=== PATIENT | female | born 1965 | race Caucasian/White ===

== ENCOUNTER 2019-08-17 11:00 | Emergency (ER) | payer BC, OTHER ==
[~2019-08-17] VITALS: Ht 147.3 cm; Wt 59.5 kg
[2019-08-17] MEDS ORDERED: TOPI100T37 PO ×2 (11:13→12:12)
[2019-08-17] MEDS ORDERED: CARB-60 PO (11:13)
[2019-08-17] MEDS ORDERED: LevETIRAcetam 1,000 MG in DEXTROSE 5%-WATER 100 ML IV ONE (12:00)
[2019-08-17] MEDS ORDERED: LORazepam 2 MG/ML VIAL IVP ONE (12:00)
[2019-08-17] MEDS ORDERED: CarBAMazepine 200 MG ER TABLET PO ONE (12:00)
[2019-08-17 13:02] LABS: BASOPHILS % (AUTO) 0.4 % (0.0-2.0); EOSINOPHILS % (AUTO) 0.2 % (1.0-6.0); HEMATOCRIT 40.7 % (36-46); HEMOGLOBIN 13.5 g/dL (12.0-16.0); LYMPHOCYTES # (AUTO) 1.1 K/uL (1.0-4.8); LYMPHOCYTES % (AUTO) 18.5 % (22.0-44.0); MEAN CORPUSCULAR HEMOGLOBIN 31.5 pg (26.0-34.0); MEAN CORPUSCULAR VOLUME 95 fL (80-100); MONOCYTES # (AUTO) 0.3 K/uL (0.1-1.0); MONOCYTES % (AUTO) 5.4 % (2.0-9.0); NEUTROPHILS # (AUTO) 4.4 K/uL (1.8-7.7); NEUTROPHILS % (AUTO) 75.5 % (40.0-70.0); PLATELET COUNT (AUTO) 206 K/uL (150-450); RED BLOOD CELL COUNT(AUTO) 4.27 MIL/uL (4.00-5.20); RED CELL DISTRIBUTION WIDTH 12.8 % (11.5-14.5)
[2019-08-17 13:16] LABS: ANION GAP 9 mmol/L (8-16); CALCIUM, TOTAL 8.1 mg/dL (8.8-10.5); CARBON DIOXIDE 25 mmol/L (22-29); CHLORIDE 108 mmol/L (98-107); CREATININE 0.85 mg/dL (0.60-1.30); GLOMERULAR FILTR. RATE CALC > 60 mL/min (>60); GLUCOSE,RANDOM 107 mg/dL (70-110); POTASSIUM 3.6 mmol/L (3.5-5.1); SODIUM SERUM 142 mmol/L (136-145); UREA NITROGEN, BLOOD 12 mg/dL (7-18)
[2019-08-17 13:23] LABS: ALANINE AMINOTRANSFERASE 22 U/L (12-78); ALBUMIN 3.7 g/dL (3.4-5.0); ALKALINE PHOSPHATASE 178 U/L (46-116); ASPARTATE AMINOTRANSFERASE 15 U/L (15-37); BILIRUBIN,TOTAL 0.2 mg/dL (0.1-1.0); TOTAL PROTEIN, SERUM 7.6 g/dL (6.4-8.2)
[2019-08-17 17:28] VITALS: BP 129/77
== END 2019-08-17 17:31 | disposition home or self-care (01) ==
LOC: EMS 11:03
DX: G40.909 Epilepsy, unspecified, not intractable, without status epilepticus (principal)
CPT/HCPCS: 36415; 80053; 85025; 96374; 96375; 99283; J0712; J2060; J7060

== ENCOUNTER 2019-08-23 10:50 | Emergency (ER) | payer BC, OTHER ==
[~2019-08-23] VITALS: Ht 147.3 cm; Wt 61.3 kg
[~2019-08-23 10:50] MED LIST: CARB-60 PO; TOPI100T37 PO
[2019-08-23 12:23] VITALS: BP 122/81
== END 2019-08-23 13:10 | disposition home or self-care (01) ==
LOC: EMS 10:52
DX: S80.811A Abrasion, right lower leg, initial encounter (principal); G40.909 Epilepsy, unspecified, not intractable, without status epilepticus; Z98.890 Other specified postprocedural states; Z79.899 Other long term (current) drug therapy; X58.XXXA Exposure to other specified factors, initial encounter; Y93.01 Activity, walking, marching and hiking; Y92.410 Unspecified street and highway as the place of occurrence of the external cause; Y99.8 Other external cause status

== ENCOUNTER 2020-03-22 14:13 | Emergency (ER) | payer BC, OTHER ==
[~2020-03-22] VITALS: Ht 149.9 cm; Wt 54.5 kg
[2020-03-22 15:27] LABS: BASOPHILS % (AUTO) 0.5 % (0.0-2.0); EOSINOPHILS % (AUTO) 0.7 % (1.0-6.0); HEMATOCRIT 41.2 % (36-46); HEMOGLOBIN 13.6 g/dL (12.0-16.0); LYMPHOCYTES # (AUTO) 1.4 K/uL (1.0-4.8); LYMPHOCYTES % (AUTO) 25.9 % (22.0-44.0); MEAN CORPUSCULAR HEMOGLOBIN 30.7 pg (26.0-34.0); MEAN CORPUSCULAR HGB CONC 32.9 G/dL (31.0-37.0); MEAN CORPUSCULAR VOLUME 93 fL (80-100); MONOCYTES # (AUTO) 0.4 K/uL (0.1-1.0); MONOCYTES % (AUTO) 7.2 % (2.0-9.0); NEUTROPHILS # (AUTO) 3.6 K/uL (1.8-7.7); NEUTROPHILS % (AUTO) 65.7 % (40.0-70.0); PLATELET COUNT (AUTO) 210 K/uL (150-450); RED BLOOD CELL COUNT(AUTO) 4.42 MIL/uL (4.00-5.20); RED CELL DISTRIBUTION WIDTH 13.5 % (11.5-14.5)
[2020-03-22 15:39] LABS: ANION GAP 13 mmol/L (8-16); CALCIUM, TOTAL 8.9 mg/dL (8.8-10.5); CARBON DIOXIDE 23 mmol/L (22-29); CHLORIDE 107 mmol/L (98-107); CREATININE 0.77 mg/dL (0.60-1.30); GLOMERULAR FILTR. RATE CALC > 60 mL/min (>60); GLUCOSE,RANDOM 122 mg/dL (70-110); POTASSIUM 3.6 mmol/L (3.5-5.1); SODIUM SERUM 143 mmol/L (136-145); UREA NITROGEN, BLOOD 18 mg/dL (7-18)
[2020-03-22 15:52] LABS: ALANINE AMINOTRANSFERASE 25 U/L (12-78); ALBUMIN 3.9 g/dL (3.4-5.0); ALKALINE PHOSPHATASE 160 U/L (46-116); ASPARTATE AMINOTRANSFERASE 22 U/L (15-37); BILIRUBIN,TOTAL 0.4 mg/dL (0.1-1.0); TOTAL PROTEIN, SERUM 8.2 g/dL (6.4-8.2)
[2020-03-22] MEDS ORDERED: OXCA300T57 PO (16:04)
[2020-03-22 16:08] LABS: PHENYTOIN (DILANTIN) < 0.5 mcg/mL (10.0-20.0)
[2020-03-22] MEDS ORDERED: LORazepam 1 MG TABLET PO ONE (17:45)
[2020-03-22] MEDS ORDERED: SODIUM CHLORIDE 0.9% 1,000 ML IV ONE (17:45)
[2020-03-22 18:38] LABS: AMPHET/METH SCREEN,URINE NEGATIVE (NEGATIVE); BARBITURATE SCREEN, URINE NEGATIVE (NEGATIVE); BENZODIAZEPINES SCREEN,URINE NEGATIVE (NEGATIVE); CANNABINOID SCREEN,URINE NEGATIVE (NEGATIVE); COCAINE SCREEN,URINE NEGATIVE (NEGATIVE); METHADONE SCREEN, URINE NEGATIVE (NEGATIVE); OPIATE SCREEN,URINE NEGATIVE (NEGATIVE)
[2020-03-22 18:40] LABS: PHENCYCLIDINE SCREEN,URINE NEGATIVE (NEGATIVE)
[2020-03-22 19:39] VITALS: BP 140/78
== END 2020-03-22 20:00 | disposition home or self-care (01) ==
LOC: EMS 14:13
DX: G40.909 Epilepsy, unspecified, not intractable, without status epilepticus (principal); F41.9 Anxiety disorder, unspecified
CPT/HCPCS: 36415; 71045; 80053; 80185; 80307; 84484; 85025; 93005; 99285; G0480; J7030

== ENCOUNTER 2020-07-04 20:53 | Emergency (ER) | payer MEDICARE, OTHER ==
[~2020-07-04] VITALS: Ht 149.9 cm; Wt 53.6 kg
[~2020-07-04 20:53] MED LIST changes: +OXCA300T57 PO
[2020-07-04] MEDS ORDERED: TOPI100T37 PO (21:29)
[2020-07-04] MEDS ORDERED: OXCA300T57 PO (21:29)
[2020-07-04] MEDS ORDERED: SODIUM CHLORIDE 0.9% 1,000 ML IV ONE (22:30)
[2020-07-04 23:01] LABS: BASOPHILS % (AUTO) 0.3 % (0.0-2.0); EOSINOPHILS % (AUTO) 0 % (1.0-6.0); HEMATOCRIT 45.8 % (36-46); HEMOGLOBIN 14.8 g/dL (12.0-16.0); LYMPHOCYTES # (AUTO) 1.5 K/uL (1.0-4.8); LYMPHOCYTES % (AUTO) 12.1 % (22.0-44.0); MEAN CORPUSCULAR HEMOGLOBIN 30.2 pg (26.0-34.0); MEAN CORPUSCULAR HGB CONC 32.3 G/dL (31.0-37.0); MEAN CORPUSCULAR VOLUME 94 fL (80-100); MONOCYTES # (AUTO) 0.5 K/uL (0.1-1.0); MONOCYTES % (AUTO) 3.8 % (2.0-9.0); NEUTROPHILS # (AUTO) 10.1 K/uL (1.8-7.7); NEUTROPHILS % (AUTO) 83.8 % (40.0-70.0); PLATELET COUNT (AUTO) 230 K/uL (150-450); RED BLOOD CELL COUNT(AUTO) 4.89 MIL/uL (4.00-5.20); RED CELL DISTRIBUTION WIDTH 12.7 % (11.5-14.5)
[2020-07-04 23:12] LABS: ANION GAP 10 mmol/L (8-16); CARBON DIOXIDE 26 mmol/L (22-29); CHLORIDE 109 mmol/L (98-107); CREATININE 0.74 mg/dL (0.60-1.30); GLOMERULAR FILTR. RATE CALC > 60 mL/min (>60); GLUCOSE,RANDOM 143 mg/dL (70-110); SODIUM SERUM 145 mmol/L (136-145); UREA NITROGEN, BLOOD 15 mg/dL (7-18)
[2020-07-04 23:13] LABS: PROTHROMBIN TIME 10.8 SEC (9.4-11.6)
[2020-07-04 23:33] LABS: ALANINE AMINOTRANSFERASE 30 U/L (12-78); ALBUMIN 4.5 g/dL (3.4-5.0); ALKALINE PHOSPHATASE 154 U/L (46-116); ASPARTATE AMINOTRANSFERASE 19 U/L (15-37); BILIRUBIN,TOTAL 0.4 mg/dL (0.1-1.0); CREATINE KINASE, TOTAL ONLY 100 U/L (26-192); TOTAL PROTEIN, SERUM 8.9 g/dL (6.4-8.2)
[2020-07-05 01:25] LABS: COVID AG,FIA SOURCE NASOPHARYNGEAL
[2020-07-05 01:30] LABS: APPEARANCE,URINE TURBID (CLEAR); BILIRUBIN,URINE NEGATIVE (NEGATIVE); GLUCOSE, URINE (UA) NEGATIVE (NEGATIVE); KETONES,URINE NEGATIVE (NEGATIVE); LEUKOCYTE ESTERASE ,URINE SMALL (NEGATIVE); NITRATE,URINE NEGATIVE (NEGATIVE); OCCULT BLOOD,URINE NEGATIVE (NEGATIVE); PROTEIN,URINE NEGATIVE (NEGATIVE); UROBILINOGEN,URINE 0.2 mg/dL (<=1.0)
[2020-07-05 01:34] LABS: AMPHET/METH SCREEN,URINE NEGATIVE (NEGATIVE); BARBITURATE SCREEN, URINE NEGATIVE (NEGATIVE); BENZODIAZEPINES SCREEN,URINE NEGATIVE (NEGATIVE); CANNABINOID SCREEN,URINE NEGATIVE (NEGATIVE); COCAINE SCREEN,URINE NEGATIVE (NEGATIVE); METHADONE SCREEN, URINE NEGATIVE (NEGATIVE); OPIATE SCREEN,URINE NEGATIVE (NEGATIVE)
[2020-07-05 01:39] LABS: PHENCYCLIDINE SCREEN,URINE NEGATIVE (NEGATIVE)
[2020-07-05 01:50] LABS: BACTERIA,URINE Many /HPF (None Seen); RBC,URINE 0-2 /HPF (0-2); SQUAMOUS EPITHELIAL CELL,UR Moderate /LPF (None Seen); WBC,URINE 26-50 /HPF (0-5)
[2020-07-05] MEDS ORDERED: CefTRIAXone 1 GM/DEXTROSE 50 ML IV ONE (02:00)
[2020-07-05] MEDS ORDERED: MECLIZINE HCL 25 MG TABLET PO ONE (02:00)
[2020-07-05 04:43] VITALS: BP 124/52
== END 2020-07-05 05:52 | disposition short-term general hospital (02) ==
LOC: EMS 20:53
DX: R42 Dizziness and giddiness (principal); N39.0 Urinary tract infection, site not specified; R11.2 Nausea with vomiting, unspecified; R00.1 Bradycardia, unspecified; Z88.8 Allergy status to other drugs, medicaments and biological substances; Z79.899 Other long term (current) drug therapy; Z20.828 Contact with and (suspected) exposure to other viral communicable diseases
CPT/HCPCS: 36415; 70450; 71045; 80053; 80307; 81001; 82550; 84484; 85025; 85610; 85730; 87086; 87426; 93005; 96361; 96365; 96366; 99291; J0696; J7030

== ENCOUNTER 2020-10-20 13:07 | Emergency (ER) | payer MEDICARE, OTHER ==
[~2020-10-20] VITALS: Ht 149.9 cm; Wt 57.7 kg
[~2020-10-20 13:07] MED LIST changes: -CARB-60 PO
[2020-10-20 13:25] VITALS: BP 119/75
== END 2020-10-20 14:01 | disposition home or self-care (01) ==
LOC: EMS 13:07
DX: Z76.0 Encounter for issue of repeat prescription (principal); G43.909 Migraine, unspecified, not intractable, without status migrainosus; Z88.6 Allergy status to analgesic agent; Z91.018 Allergy to other foods; Z95.0 Presence of cardiac pacemaker
CPT/HCPCS: 99283

== ENCOUNTER 2020-10-24 11:50 | Emergency (ER) | payer MEDICARE, OTHER ==
[~2020-10-24] VITALS: Ht 154.9 cm; Wt 58.0 kg
[2020-10-24 12:45] VITALS: BP 120/60
== END 2020-10-24 13:05 | disposition home or self-care (01) ==
LOC: EMS 11:50
DX: G40.909 Epilepsy, unspecified, not intractable, without status epilepticus (principal); Z76.0 Encounter for issue of repeat prescription
CPT/HCPCS: 99281; Z7502

== ENCOUNTER 2020-12-08 08:23 | Emergency (ER) | payer MEDICARE, OTHER ==
[~2020-12-08] VITALS: Ht 147.3 cm; Wt 57.7 kg
[2020-12-08 08:26] VITALS: BP 110/77
[2020-12-08] MEDS ORDERED: ACYC400T PO (08:35)
== END 2020-12-08 08:57 | disposition home or self-care (01) ==
LOC: EMS 08:28
DX: Z76.0 Encounter for issue of repeat prescription (principal); Z86.69 Personal history of other diseases of the nervous system and sense organs; Z95.0 Presence of cardiac pacemaker; Z88.6 Allergy status to analgesic agent; Z91.018 Allergy to other foods
CPT/HCPCS: 99281; Z7502

== ENCOUNTER 2021-01-21 10:22 | Emergency (ER) | payer MEDICARE, OTHER ==
[~2021-01-21] VITALS: Ht 149.9 cm; Wt 58.2 kg
[~2021-01-21 10:22] MED LIST changes: +ACYC400T20 PO
[2021-01-21 10:59] LABS: COVID AG,FIA SOURCE NASOPHARYNGEAL
[2021-01-21 11:03] LABS: BASOPHILS % (AUTO) 0.4 % (0.0-2.0); EOSINOPHILS % (AUTO) 0.7 % (1.0-6.0); HEMATOCRIT 41.6 % (36-46); HEMOGLOBIN 13.7 g/dL (12.0-16.0); LYMPHOCYTES # (AUTO) 2.3 K/uL (1.0-4.8); LYMPHOCYTES % (AUTO) 34.4 % (22.0-44.0); MEAN CORPUSCULAR HEMOGLOBIN 30.6 pg (26.0-34.0); MEAN CORPUSCULAR VOLUME 93 fL (80-100); MONOCYTES # (AUTO) 0.4 K/uL (0.1-1.0); MONOCYTES % (AUTO) 5.9 % (2.0-9.0); NEUTROPHILS % (AUTO) 58.6 % (40.0-70.0); PLATELET COUNT (AUTO) 203 K/uL (150-450); RED BLOOD CELL COUNT(AUTO) 4.48 MIL/uL (4.00-5.20); RED CELL DISTRIBUTION WIDTH 13.3 % (11.5-14.5)
[2021-01-21 11:20] LABS: ANION GAP 10 mmol/L (8-16); CALCIUM, TOTAL 8.6 mg/dL (8.8-10.5); CARBON DIOXIDE 23 mmol/L (22-29); CHLORIDE 104 mmol/L (98-107); CREATININE 0.81 mg/dL (0.60-1.30); GLOMERULAR FILTR. RATE CALC > 60 mL/min (>60); GLUCOSE,RANDOM 99 mg/dL (70-110); POTASSIUM 4.2 mmol/L (3.5-5.1); SODIUM SERUM 137 mmol/L (136-145); UREA NITROGEN, BLOOD 20 mg/dL (7-18)
[2021-01-21 11:24] LABS: ALANINE AMINOTRANSFERASE 27 U/L (12-78); ALBUMIN 4.1 g/dL (3.4-5.0); ALKALINE PHOSPHATASE 164 U/L (46-116); ASPARTATE AMINOTRANSFERASE 16 U/L (15-37); BILIRUBIN,TOTAL 0.3 mg/dL (0.1-1.0)
[2021-01-21 13:14] LABS: APPEARANCE,URINE CLEAR (CLEAR); BILIRUBIN,URINE NEGATIVE (NEGATIVE); GLUCOSE, URINE (UA) NEGATIVE (NEGATIVE); KETONES,URINE NEGATIVE (NEGATIVE); LEUKOCYTE ESTERASE ,URINE NEGATIVE (NEGATIVE); NITRATE,URINE NEGATIVE (NEGATIVE); OCCULT BLOOD,URINE NEGATIVE (NEGATIVE); PROTEIN,URINE NEGATIVE (NEGATIVE); UROBILINOGEN,URINE 0.2 mg/dL (<=1.0)
[2021-01-21 13:21] LABS: BACTERIA,URINE None Seen /HPF (None Seen); RBC,URINE None Seen /HPF (0-2); WBC,URINE None Seen /HPF (0-5)
[2021-01-21] MEDS ORDERED: OXcarbazepine 300 MG TABLET PO ONE (13:30)
[2021-01-21 13:33] VITALS: BP 133/68
== END 2021-01-21 13:35 | disposition home or self-care (01) ==
LOC: EMS 10:33
DX: R55 Syncope and collapse (principal); Z20.822 Contact with and (suspected) exposure to COVID-19; Z95.0 Presence of cardiac pacemaker; Z88.6 Allergy status to analgesic agent; Z91.018 Allergy to other foods
CPT/HCPCS: 71045; 80053; 81001; 82962; 83605; 84484; 85025; 87426; 93005; 99285; 36415-L1; 36415-TC

== ENCOUNTER 2021-03-18 20:56 | Emergency (ER) | payer MEDICARE, OTHER ==
[~2021-03-18] VITALS: Ht 147.3 cm; Wt 55.0 kg
[2021-03-18] MEDS ORDERED: DiphenhydrAMINE HCL 50 MG/ML VIAL IVP STA (23:12)
[2021-03-18] MEDS ORDERED: METOCLOPRAMIDE HCL 5 MG/ML 2 ML VIAL IVP ONE (23:15)
[2021-03-18] MEDS ORDERED: SODIUM CHLORIDE 0.9% 1,000 ML IV ONE (23:15)
[2021-03-18] MEDS ORDERED: MECLIZINE HCL 25 MG TABLET PO ONE (23:15)
[2021-03-18 23:39] LABS: BASOPHILS % (AUTO) 0.3 % (0.0-2.0); EOSINOPHILS % (AUTO) 0.8 % (1.0-6.0); HEMATOCRIT 38.9 % (36-46); HEMOGLOBIN 12.5 g/dL (12.0-16.0); LYMPHOCYTES # (AUTO) 2.4 K/uL (1.0-4.8); LYMPHOCYTES % (AUTO) 32.4 % (22.0-44.0); MEAN CORPUSCULAR HEMOGLOBIN 29.5 pg (26.0-34.0); MEAN CORPUSCULAR HGB CONC 32.1 G/dL (31.0-37.0); MEAN CORPUSCULAR VOLUME 92 fL (80-100); MONOCYTES # (AUTO) 0.5 K/uL (0.1-1.0); MONOCYTES % (AUTO) 7.4 % (2.0-9.0); NEUTROPHILS # (AUTO) 4.4 K/uL (1.8-7.7); NEUTROPHILS % (AUTO) 59.1 % (40.0-70.0); PLATELET COUNT (AUTO) 210 K/uL (150-450); RED BLOOD CELL COUNT(AUTO) 4.23 MIL/uL (4.00-5.20); RED CELL DISTRIBUTION WIDTH 12.9 % (11.5-14.5)
[2021-03-18 23:51] LABS: ANION GAP 10 mmol/L (8-16); CALCIUM, TOTAL 8.5 mg/dL (8.8-10.5); CARBON DIOXIDE 24 mmol/L (22-29); CHLORIDE 107 mmol/L (98-107); CREATININE 0.82 mg/dL (0.60-1.30); GLOMERULAR FILTR. RATE CALC > 60 mL/min (>60); GLUCOSE,RANDOM 92 mg/dL (70-110); SODIUM SERUM 141 mmol/L (136-145); UREA NITROGEN, BLOOD 19 mg/dL (7-18)
[2021-03-18 23:55] LABS: PROTHROMBIN TIME 10.8 SEC (9.4-11.6)
[2021-03-19 00:16] LABS: ALANINE AMINOTRANSFERASE 35 U/L (12-78); ALBUMIN 3.5 g/dL (3.4-5.0); ALKALINE PHOSPHATASE 155 U/L (46-116); ASPARTATE AMINOTRANSFERASE 19 U/L (15-37); BILIRUBIN,TOTAL 0.2 mg/dL (0.1-1.0); CREATINE KINASE, TOTAL ONLY 85 U/L (26-192); LIPASE 185 U/L (73-393); TOTAL PROTEIN, SERUM 7.2 g/dL (6.4-8.2)
[2021-03-19 00:31] LABS: B-TYPE NATRIURETIC PEPTIDE 38 pg/mL (0-100)
[2021-03-19 00:46] VITALS: BP 123/74
== END 2021-03-19 01:29 | disposition home or self-care (01) ==
LOC: EMS 20:56
DX: R51.9 Headache, unspecified (principal); R42 Dizziness and giddiness; Z95.0 Presence of cardiac pacemaker; Z88.6 Allergy status to analgesic agent; Z91.018 Allergy to other foods
CPT/HCPCS: 70450; 71045; 80053; 82550; 83690; 83880; 84484; 85025; 85610; 85730; 93005; 96361; 96374; 96375; 99285; J1200; J2765; J7030

== ENCOUNTER 2021-06-21 10:42 | Emergency (ER) | payer OTHER ==
[~2021-06-21] VITALS: Ht 162.6 cm; Wt 56.0 kg
[2021-06-21] MEDS ORDERED: LORazepam 2 MG/ML VIAL IVP ONE (11:15)
[2021-06-21] MEDS ORDERED: LevETIRAcetam 1,000 MG in DEXTROSE 5%-WATER 100 ML IV ONE (11:15)
[2021-06-21 11:29] LABS: BASOPHILS % (AUTO) 0.5 % (0.0-2.0); EOSINOPHILS % (AUTO) 0.7 % (1.0-6.0); HEMATOCRIT 40.3 % (36-46); HEMOGLOBIN 13.3 g/dL (12.0-16.0); LYMPHOCYTES % (AUTO) 32.2 % (22.0-44.0); MEAN CORPUSCULAR HEMOGLOBIN 30.5 pg (26.0-34.0); MEAN CORPUSCULAR VOLUME 92 fL (80-100); MONOCYTES # (AUTO) 0.4 K/uL (0.1-1.0); NEUTROPHILS # (AUTO) 3.6 K/uL (1.8-7.7); NEUTROPHILS % (AUTO) 59.6 % (40.0-70.0); PLATELET COUNT (AUTO) 205 K/uL (150-450); RED BLOOD CELL COUNT(AUTO) 4.36 MIL/uL (4.00-5.20)
[2021-06-21 11:39] LABS: ANION GAP 10 mmol/L (8-16); CALCIUM, TOTAL 8.7 mg/dL (8.8-10.5); CARBON DIOXIDE 26 mmol/L (22-29); CHLORIDE 106 mmol/L (98-107); CREATININE 0.68 mg/dL (0.60-1.30); GLOMERULAR FILTR. RATE CALC > 60 mL/min (>60); GLUCOSE,RANDOM 102 mg/dL (70-110); SODIUM SERUM 142 mmol/L (136-145); UREA NITROGEN, BLOOD 12 mg/dL (7-18)
[2021-06-21 11:45] LABS: ALANINE AMINOTRANSFERASE 27 U/L (12-78); ALKALINE PHOSPHATASE 131 U/L (46-116); ASPARTATE AMINOTRANSFERASE 17 U/L (15-37); BILIRUBIN,TOTAL 0.3 mg/dL (0.1-1.0)
[2021-06-21 13:30] VITALS: BP 119/72
== END 2021-06-21 14:08 | disposition home or self-care (01) ==
LOC: EMS 10:42
DX: G40.909 Epilepsy, unspecified, not intractable, without status epilepticus (principal); M79.632 Pain in left forearm; Z95.0 Presence of cardiac pacemaker; Z88.6 Allergy status to analgesic agent; Z91.018 Allergy to other foods
CPT/HCPCS: 36415; 80053; 85025; 96365; 96375; 99284; J0712; J2060; J7060

== ENCOUNTER 2021-10-04 13:47 | Emergency (ER) | payer OTHER ==
[~2021-10-04] VITALS: Ht 147.3 cm; Wt 59.1 kg
[2021-10-04 15:05] LABS: BASOPHILS % (AUTO) 0.3 % (0.0-2.0); EOSINOPHILS % (AUTO) 0.3 % (1.0-6.0); HEMATOCRIT 40.2 % (36-46); HEMOGLOBIN 13.7 g/dL (12.0-16.0); LYMPHOCYTES # (AUTO) 1.1 K/uL (1.0-4.8); LYMPHOCYTES % (AUTO) 13.3 % (22.0-44.0); MEAN CORPUSCULAR HEMOGLOBIN 30.9 pg (26.0-34.0); MEAN CORPUSCULAR HGB CONC 34.1 G/dL (31.0-37.0); MEAN CORPUSCULAR VOLUME 91 fL (80-100); MONOCYTES # (AUTO) 0.6 K/uL (0.1-1.0); MONOCYTES % (AUTO) 7.9 % (2.0-9.0); NEUTROPHILS # (AUTO) 6.3 K/uL (1.8-7.7); NEUTROPHILS % (AUTO) 78.2 % (40.0-70.0); PLATELET COUNT (AUTO) 208 K/uL (150-450); RED BLOOD CELL COUNT(AUTO) 4.44 MIL/uL (4.00-5.20); RED CELL DISTRIBUTION WIDTH 12.6 % (11.5-14.5)
[2021-10-04 15:12] LABS: ANION GAP 9 mmol/L (8-16); CALCIUM, TOTAL 9.1 mg/dL (8.8-10.5); CARBON DIOXIDE 27 mmol/L (22-29); CHLORIDE 109 mmol/L (98-107); CREATININE 0.83 mg/dL (0.60-1.30); GLOMERULAR FILTR. RATE CALC > 60 mL/min (>60); GLUCOSE,RANDOM 86 mg/dL (70-110); POTASSIUM 3.6 mmol/L (3.5-5.1); SODIUM SERUM 145 mmol/L (136-145); UREA NITROGEN, BLOOD 16 mg/dL (7-18)
[2021-10-04] MEDS ORDERED: TOPIRAMATE 100 MG TABLET PO ONE (17:45)
[2021-10-04] MEDS ORDERED: IBUPROFEN 400 MG TABLET PO ONE (17:45)
[2021-10-04] MEDS ORDERED: OXcarbazepine 300 MG TABLET PO ONE (22:30)
[2021-10-05 00:07] VITALS: BP 115/63
== END 2021-10-05 00:20 | disposition home or self-care (01) ==
LOC: EMS 13:51
DX: G40.909 Epilepsy, unspecified, not intractable, without status epilepticus (principal); M25.531 Pain in right wrist; Z88.8 Allergy status to other drugs, medicaments and biological substances; Z79.899 Other long term (current) drug therapy
CPT/HCPCS: 80048; 85025; 93005; 99285

== ENCOUNTER 2021-12-25 06:59 | Emergency (ER) | payer MEDICARE, OTHER ==
[~2021-12-25] VITALS: Ht 149.9 cm; Wt 59.5 kg
[2021-12-25 07:16] VITALS: BP 121/78
[2021-12-25] MEDS ORDERED: IBUPROFEN 600 MG TABLET PO ONE (07:30)
[2021-12-25 07:50] LABS: BASOPHILS % (AUTO) 0.5 % (0.0-2.0); HEMATOCRIT 40.4 % (36-46); HEMOGLOBIN 13.7 g/dL (12.0-16.0); LYMPHOCYTES # (AUTO) 1.8 K/uL (1.0-4.8); LYMPHOCYTES % (AUTO) 31.2 % (22.0-44.0); MEAN CORPUSCULAR HEMOGLOBIN 30.4 pg (26.0-34.0); MEAN CORPUSCULAR VOLUME 90 fL (80-100); MONOCYTES # (AUTO) 0.4 K/uL (0.1-1.0); MONOCYTES % (AUTO) 7.3 % (2.0-9.0); NEUTROPHILS # (AUTO) 3.4 K/uL (1.8-7.7); PLATELET COUNT (AUTO) 211 K/uL (150-450); RED BLOOD CELL COUNT(AUTO) 4.51 MIL/uL (4.00-5.20); RED CELL DISTRIBUTION WIDTH 12.7 % (11.5-14.5)
[2021-12-25 08:04] LABS: ANION GAP 11 mmol/L (8-16); CARBON DIOXIDE 24 mmol/L (22-29); CHLORIDE 107 mmol/L (98-107); POTASSIUM 3.8 mmol/L (3.5-5.1); SODIUM SERUM 142 mmol/L (136-145)
[2021-12-25 08:05] LABS: CALCIUM, TOTAL 8.7 mg/dL (8.8-10.5); CREATININE 0.79 mg/dL (0.60-1.30); GLOMERULAR FILTR. RATE CALC > 60 mL/min (>60); GLUCOSE,RANDOM 97 mg/dL (70-110); UREA NITROGEN, BLOOD 17 mg/dL (7-18)
[2021-12-25] MEDS ORDERED: TraMADol HCL 50 MG TABLET PO ONE (08:45)
[2021-12-25] MEDS ORDERED: IBUP-2070 PO (09:52)
== END 2021-12-25 10:31 | disposition home or self-care (01) ==
LOC: EMS 07:02
DX: R07.89 Other chest pain (principal); Z88.8 Allergy status to other drugs, medicaments and biological substances
CPT/HCPCS: 71045; 80048; 84484; 85025; 93005; 99285; 36415-L1; 36415-TC

== ENCOUNTER 2022-01-29 13:34 | Emergency (ER) | payer MEDICARE, OTHER ==
[~2022-01-29] VITALS: Ht 144.8 cm; Wt 57.3 kg
[~2022-01-29 13:34] MED LIST changes: +IBUP-2070 PO
[2022-01-29] MEDS ORDERED: LIDOCAINE 1% 10 ML VIAL SQ ONE (15:15)
[2022-01-29] MEDS ORDERED: IBUPROFEN 600 MG TABLET PO ONE (15:30)
[2022-01-29] MEDS ORDERED: PERTUSS(ACELL),DIPH,TET VAC/PF 0.5 ML SYRINGE IM. ONE (15:45)
[2022-01-29 15:48] VITALS: BP 143/77
[2022-01-29 16:12] LABS: BASOPHILS % (AUTO) 0.3 % (0.0-2.0); EOSINOPHILS % (AUTO) 0.3 % (1.0-6.0); HEMATOCRIT 40.7 % (36-46); HEMOGLOBIN 13.7 g/dL (12.0-16.0); LYMPHOCYTES # (AUTO) 1.6 K/uL (1.0-4.8); LYMPHOCYTES % (AUTO) 17.9 % (22.0-44.0); MEAN CORPUSCULAR HEMOGLOBIN 30.5 pg (26.0-34.0); MEAN CORPUSCULAR HGB CONC 33.7 G/dL (31.0-37.0); MEAN CORPUSCULAR VOLUME 90 fL (80-100); MONOCYTES # (AUTO) 0.5 K/uL (0.1-1.0); MONOCYTES % (AUTO) 5.3 % (2.0-9.0); NEUTROPHILS % (AUTO) 76.2 % (40.0-70.0); PLATELET COUNT (AUTO) 223 K/uL (150-450); RED CELL DISTRIBUTION WIDTH 12.8 % (11.5-14.5)
[2022-01-29] MEDS ORDERED: AMOX500C2 PO (16:12)
[2022-01-29 16:25] LABS: ANION GAP 8 mmol/L (8-16); CALCIUM, TOTAL 8.9 mg/dL (8.8-10.5); CARBON DIOXIDE 24 mmol/L (22-29); CHLORIDE 106 mmol/L (98-107); CREATININE 0.72 mg/dL (0.60-1.30); GLOMERULAR FILTR. RATE CALC > 60 mL/min (>60); GLUCOSE,RANDOM 102 mg/dL (70-110); POTASSIUM 3.3 mmol/L (3.5-5.1); SODIUM SERUM 138 mmol/L (136-145); UREA NITROGEN, BLOOD 14 mg/dL (7-18)
[2022-01-29 16:32] LABS: ALANINE AMINOTRANSFERASE 30 U/L (12-78); ALBUMIN 4.1 g/dL (3.4-5.0); ALKALINE PHOSPHATASE 213 U/L (46-116); ASPARTATE AMINOTRANSFERASE 19 U/L (15-37); BILIRUBIN,TOTAL 0.2 mg/dL (0.1-1.0); TOTAL PROTEIN, SERUM 8.6 g/dL (6.4-8.2)
== END 2022-01-29 17:01 | disposition home or self-care (01) ==
LOC: EMS 13:34
DX: G40.909 Epilepsy, unspecified, not intractable, without status epilepticus (principal); S01.81XA Laceration without foreign body of other part of head, initial encounter; Z86.79 Personal history of other diseases of the circulatory system; Z86.19 Personal history of other infectious and parasitic diseases; Z86.69 Personal history of other diseases of the nervous system and sense organs; Z96.89 Presence of other specified functional implants; Z98.890 Other specified postprocedural states; Z88.8 Allergy status to other drugs, medicaments and biological substances; Z91.018 Allergy to other foods; W19.XXXA Unspecified fall, initial encounter; Y93.89 Activity, other specified; Y92.89 Other specified places as the place of occurrence of the external cause; Y99.8 Other external cause status
CPT/HCPCS: 12011; 70450; 80053; 85025; 90471; 90715; 99284; J3490

== ENCOUNTER 2022-02-07 13:13 | Emergency (ER) | payer MEDICARE, OTHER ==
[~2022-02-07] VITALS: Ht 144.8 cm; Wt 57.3 kg
[~2022-02-07 13:13] MED LIST changes: +AMOX500C2 PO
[2022-02-07 13:31] VITALS: BP 138/74
== END 2022-02-07 13:55 | disposition home or self-care (01) ==
LOC: EMS 13:14
DX: S01.81XD Laceration without foreign body of other part of head, subsequent encounter (principal); R50.9 Fever, unspecified; G40.909 Epilepsy, unspecified, not intractable, without status epilepticus; I49.9 Cardiac arrhythmia, unspecified; X58.XXXD Exposure to other specified factors, subsequent encounter
CPT/HCPCS: 99281; Z7502